=== PATIENT | female | born 1965 | race Caucasian/White ===

== ENCOUNTER 2021-01-27 00:47 | Emergency (ER) | payer OTHER ==
[2021-01-27 01:10] VITALS: BP 136/75; PULSE 80
[2021-01-27] MEDS ORDERED: Lidocaine 2% Viscous Solution 15 ML Cup PO ONE (01:30)
--- NOTE | 2021-01-27 02:08 | EDM.PDOC ---
ED HPI GENERAL MEDICAL PROBLEM - General Chief Complaint: Genitourinary Problem Stated Complaint: Vaginal pain Time Seen by Provider: 01/27/21 00:55 Source of Information: Reports: Patient, Family History Limitations: Reports: No Limitations - History of Present Illness INITIAL COMMENTS - FREE TEXT/NARRATIVE: Patient presented to the ED because of a painful ulcer in the genital area which started 4 days ago. She clobetasol without relief and it hurts more when she is urinating. There is no vaginal discharge,fever,chills. Vaginal Pain Score (Numeric/FACES): 9 - Related Data Allergies Allergy/AdvReac Type Severity Reaction Status Date / Time No Known Allergies Allergy Verified 01/27/21 00:53 Home Meds: Home Meds Albuterol [Ventolin HFA] 2 puff IH QID PRN 10/29/16 [History] FLUoxetine [PROzac] 20 mg PO DAILY 10/29/16 [History] Fenofibrate Nanocrystallized [Fenofibrate] 145 mg PO DAILY 10/29/16 [History] Fish Oil/[place]-3 Fatty Acids [Fish Oil 1,000 MG] 3 gm PO DAILY 10/29/16 [History] Fluticasone Propion/Salmeterol [Advair 500-50 Diskus] 1 puff IH BID 10/29/16 [History] Lisinopril/Hydrochlorothiazide [Lisinopril-Hctz 20-25 mg Tab] 1 ea PO DAILY 10/29/16 [History] Montelukast [Singulair] 10 mg PO BEDTIME PRN 10/29/16 [History] Multivitamin [Multivitamins] 1 ea PO DAILY 10/29/16 [History] Propranolol [Inderal] 40 mg PO BID 10/29/16 [History] Zolpidem [Ambien] 5 mg PO BEDTIME PRN 10/29/16 [History] atorvaSTATin [Lipitor] 40 mg PO DAILY 10/29/16 [History] buPROPion [buPROPion XL] 150 mg PO DAILY 10/29/16 [History] glipiZIDE [Glipizide Xl] 10 mg PO DAILY 10/29/16 [History] risperiDONE [RisperiDAL] 0.25 mg PO BID 10/29/16 [History] sitaGLIPtin Phos/Metformin HCl [Janumet 50-1,000 MG] 1 tab PO BIDMEALS 12/09/16 [History] Acyclovir 400 mg PO TID #30 tablet 01/27/21 [Rx] Clobetasol [Clobetasol 0.05%] 1 applic BID 01/27/21 [History] Dapagliflozin Propanediol [Farxiga] 10 mg BEDTIME 01/27/21 [History] Insulin Glargine,Hum.Rec.Anlog [[place] Max Solostar] 10 unit SQ MO 01/27/21 [History] Lidocaine 2% [Xylocaine 2% Jelly] 1 - 2 ml TOP TID PRN #60 ml 01/27/21 [Rx] Lurasidone HCl [Latuda] 20 mg PO DAILY 01/27/21 [History] Tiotropium [place] [Spiriva Respimat] 2.5 mcg INH DAILY 01/27/21 [History] Past Medical History HEENT History: Reports: Impaired Vision Cardiovascular History: Reports: High Cholesterol, Hypertension Respiratory History: Reports: Asthma, COPD Gastrointestinal History: Reports: None Genitourinary History: Reports: Other (See Below) Other Genitourinary History: 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 DOES NOT KNOW REASON. 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 Musculoskeletal History: Reports: Fracture Other Musculoskeletal History: FX LITTLE TOE ON LEFT FOOT Neurological History: Reports: Concussion, Migraines Psychiatric History: Reports: Depression, Other (See Below) Other Psychiatric History: INSOMNIA, DYSTHYMIA Endocrine/Metabolic History: Reports: Diabetes, Type II, Obesity/BMI 30+ Hematologic History: Reports: None Immunologic History: Reports: None Oncologic (Cancer) History: Reports: None Dermatologic History: Reports: None - Infectious Disease History Infectious Disease History: Reports: Chicken Pox - Past Surgical History HEENT Surgical History: Reports: Tonsillectomy Female Surgical History: Reports: Hysterectomy Other Female Surgeries/Procedures: VAGUE STATES THINKS HAD CYSTS BUT DOES NOT KNOW IF HAD OVARIES OUT, HYSTERECTOMY OR WHAT. Musculoskeletal Surgical History: Reports: None Social & Family History - Family History Family Medical History: No Pertinent Family History Other HEENT Family History: SEE HX - Tobacco Use Tobacco Use Status *Q: Current Every Day Tobacco User Years of Tobacco use: 36 Packs/Tins Daily: 1 - Caffeine Use Caffeine Use: Reports: Soda - Recreational Drug Use Recreational Drug Use: No ED ROS GENERAL - Review of Systems Review Of Systems: See Below Constitutional: Reports: No Symptoms HEENT: Reports: No Symptoms Respiratory: Reports: No Symptoms Cardiovascular: Reports: No Symptoms Endocrine: Reports: No Symptoms GI/Abdominal: Reports: No Symptoms : Reports: Other (genital pain) Musculoskeletal: Reports: No Symptoms Skin: Reports: No Symptoms Neurological: Reports: No Symptoms Psychiatric: Reports: No Symptoms ED EXAM, GENERAL - Physical Exam Exam: See Below Exam Limited By: No Limitations General Appearance: Alert, No Apparent Distress Ears: Normal External Exam, Normal Canal Nose: Normal Inspection, Normal Mucosa Throat/Mouth: Normal Inspection, Normal Lips Head: Atraumatic, Normocephalic Neck: Normal Inspection, Supple, Non-Tender, Full Range of Motion Respiratory/Chest: No Respiratory Distress, Lungs Clear, Normal Breath Sounds Cardiovascular: Normal Peripheral Pulses, Regular Rate, Rhythm, No Edema, No Gallop, No JVD, No Murmur, No Rub GI/Abdominal: Normal Bowel Sounds, Soft, No Organomegaly (Female) Exam: Other (multiple ulcers on the labia and inside the vagina) Back Exam: Normal Inspection, Full Range of Motion Extremities: Normal Inspection, Normal Range of Motion Neurological: Alert, Oriented, CN II-XII Intact Psychiatric: Normal Affect, Normal Mood Skin Exam: Warm, Dry, Intact, Normal Color, No Rash Course - Vital Signs Text/Narrative:: Viscous lidocaine Acylovir 800 mg po x1 Last Recorded V/S: Last Vital Signs Temp 36.5 C 01/27/21 00:47 Pulse 80 01/27/21 00:47 Resp 20 01/27/21 00:47 BP 136/75 01/27/21 00:47 Pulse Ox 99 01/27/21 00:47 - Orders/Labs/Meds Meds: Medications Discontinued Medications Generic Name Dose Route Start Last Admin Trade Name Freq PRN Reason Stop Dose Admin Acyclovir 800 mg 01/27/21 02:00 Zovirax PO 01/27/21 02:01 ONETIME ONE Lidocaine HCl 15 ml 01/27/21 01:30 Xylocaine 2% Viscous PO 01/27/21 01:31 ONETIME ONE Departure - Departure Time of Disposition: 02:05 Disposition: Home, Self-Care 01 Condition: Good Clinical Impression: Genital herpes - Discharge Information Prescriptions: Acyclovir 400 mg PO TID #30 tablet Lidocaine 2% [Xylocaine 2% Jelly] 1 - 2 ml TOP TID PRN #60 ml PRN Reason: Pain Instructions: Genital Herpes Referrals: Trudi Angelo NP [Primary Care Provider] - Forms: ED Department Discharge Additional Instructions: Please read instructions on genital herpes Apply viscous lidocaine to the affected areas 3 times daily as needed especially before urinating Acyclovir 400 mg 3 times daily for 10 days Follow up as needed Sepsis Event Note (ED) - Evaluation Sepsis Screening Result: No Definite Risk - Focused Exam Vital Signs: Vital Signs Temp Pulse Resp BP Pulse Ox 01/27/21 00:47 36.5 C 80 20 136/75 99
[2021-01-27] MEDS ORDERED: Lidocaine 2% Viscous Solution 15 ML Cup TOP STA (02:20)
== END 2021-01-27 02:30 | disposition home or self-care (01) ==
LOC: FB.ED 00:47
DX: A60.04 Herpesviral vulvovaginitis (principal); E78.00 Pure hypercholesterolemia, unspecified; I10 Essential (primary) hypertension; J44.9 Chronic obstructive pulmonary disease, unspecified; E11.9 Type 2 diabetes mellitus without complications; E66.9 Obesity, unspecified; Z68.37 Body mass index [BMI] 37.0-37.9, adult; Z79.899 Other long term (current) drug therapy; Z72.0 Tobacco use
CPT/HCPCS: 99283; A9270-GY

== ENCOUNTER 2022-10-12 08:41 | Day surgery (SDC) | payer OTHER ==
[2022-10-12] MEDS ORDERED: fentaNYL 100 MCG/2 ML SDV IV ONE (08:42)
[2022-10-12] MEDS ORDERED: Midazolam 1 MG/ML 2 ML SDV IV ONE (08:42)
[2022-10-12] MEDS ORDERED: Sodium Chloride 0.9% 10 ML Syringe FLUSH PRN (09:00)
[2022-10-12] MEDS ORDERED: Lactated Ringers 1,000 ML IV SCH (09:00)
[2022-10-12 10:51] VITALS: BP 117/64; PULSE 66
[2022-10-12] MEDS ORDERED: acetaZOLAMIDE 500 MG Cap.ER PO ONE (11:00)
== END 2022-10-12 10:48 | disposition home or self-care (01) ==
LOC: FB.SDS 08:41
PROVIDERS: ATTEND Ophthalmology
DX: E11.36 Type 2 diabetes mellitus with diabetic cataract (principal); H25.041 Posterior subcapsular polar age-related cataract, right eye; H25.13 Age-related nuclear cataract, bilateral; H40.053 Ocular hypertension, bilateral; E11.65 Type 2 diabetes mellitus with hyperglycemia; E11.8 Type 2 diabetes mellitus with unspecified complications; E78.5 Hyperlipidemia, unspecified; J44.9 Chronic obstructive pulmonary disease, unspecified; I10 Essential (primary) hypertension; F32.A Depression, unspecified; G43.909 Migraine, unspecified, not intractable, without status migrainosus; E78.1 Pure hyperglyceridemia; E66.9 Obesity, unspecified; Z79.4 Long term (current) use of insulin; Z79.82 Long term (current) use of aspirin; Z79.899 Other long term (current) drug therapy
CPT/HCPCS: 00142; 66984; 82947; A9270; J2250; J3010; J3490; V2632

== ENCOUNTER 2022-11-02 06:46 | Day surgery (SDC) | payer OTHER ==
[~2022-11-02 06:46] MED LIST: Lactated Ringers 1,000 ML IV PRN; Sodium Chloride 0.9% 10 ML Syringe FLUSH PRN
[2022-11-02] MEDS ORDERED: Midazolam 1 MG/ML 2 ML SDV IV ONE (06:47)
[2022-11-02] MEDS ORDERED: fentaNYL 100 MCG/2 ML SDV IV ONE (06:47)
[2022-11-02] MEDS ORDERED: acetaZOLAMIDE 500 MG Cap.ER PO ONE (07:30)
[2022-11-02 10:36] VITALS: BP 126/68; PULSE 70
== END 2022-11-02 09:16 | disposition home or self-care (01) ==
LOC: FB.SDS 06:46
PROVIDERS: ATTEND Ophthalmology
DX: E11.36 Type 2 diabetes mellitus with diabetic cataract (principal); H25.813 Combined forms of age-related cataract, bilateral; H25.041 Posterior subcapsular polar age-related cataract, right eye; H40.053 Ocular hypertension, bilateral; E11.22 Type 2 diabetes mellitus with diabetic chronic kidney disease; E11.65 Type 2 diabetes mellitus with hyperglycemia; I12.9 Hypertensive chronic kidney disease with stage 1 through stage 4 chronic kidney disease, or unspecified chronic kidney disease; F32.A Depression, unspecified; G43.909 Migraine, unspecified, not intractable, without status migrainosus; E78.5 Hyperlipidemia, unspecified; E66.01 Morbid (severe) obesity due to excess calories; J44.9 Chronic obstructive pulmonary disease, unspecified; G47.00 Insomnia, unspecified; N18.30 Chronic kidney disease, stage 3 unspecified; I27.20 Pulmonary hypertension, unspecified; Z79.899 Other long term (current) drug therapy; Z91.048 Other nonmedicinal substance allergy status; Z68.34 Body mass index [BMI] 34.0-34.9, adult
CPT/HCPCS: 00142-QZ; 82947; A9270-GY; J2250; J3010; J7120; V2632